=== PATIENT | female | born 1960 | race African-American/Black ===

== ENCOUNTER 2022-10-30 10:02 | Emergency (ER) | payer MEDICAID ==
[~2022-10-30] VITALS: Ht 182.9 cm; Wt 114.0 kg
[~2022-10-30 10:02] MED LIST: BUSP10TA4; D-ME118S13; LORA2TAB2
[2022-10-30] MEDS ORDERED: IPRATROPIUM BROMIDE (0.02%) 0.5MG/2.5ML NEB HHN STA (10:21)
[2022-10-30] MEDS ORDERED: METHYLPREDNISOLONE SOD SUCC 125 MG/2 ML VIAL IV STA (10:21)
[2022-10-30] MEDS ORDERED: ALBUTEROL (0.083%) 2.5MG/3ML NEB HHN SCH (10:30)
[2022-10-30 10:53] LABS: BASOPHILS % 1.3 % (0.0-2.0); EOSINOPHILS % 2.7 % (0.0-5.0); HEMATOCRIT. 39.6 % (36.0-48.0); LYMPHOCYTES % 30.9 % (20.0-50.0); MEAN CORPUSCULAR HEMOGLOBIN 30.4 pg (28.0-32.0); MEAN CORPUSCULAR VOLUME 92.6 fL (81.0-99.0); MEAN PLATELET VOLUME 8.6 fl (7.4-10.4); MONOCYTES % 7.8 % (2.0-8.0); NEUTROPHILS % 57.3 % (40.0-76.0); PLATELET 298 x1000/uL (130-400); RED BLOOD CELL COUNT 4.27 mill/uL (4.2-5.4); RED CELL DISTRIBUTION WIDTH 15.2 % (11.6-14.6)
[2022-10-30 11:05] VITALS: BP 155/101
[2022-10-30 11:22] LABS: CHLORIDE 106 mEq/L (98-107)
== END 2022-10-30 12:09 | disposition left against medical advice (07) ==
LOC: ER 10:02 → EDBEDREQTM 11:50 → EDBEDREQSVC 11:50 → EDBEDREQ 11:50 → ER 12:09 → CANBEDREQ 13:04
DX: J44.1 Chronic obstructive pulmonary disease with (acute) exacerbation (principal); Z20.822 Contact with and (suspected) exposure to COVID-19; Z53.21 Procedure and treatment not carried out due to patient leaving prior to being seen by health care provider
CPT/HCPCS: 36415; 71045; 80053; 83880; 84484; 85025; 87426; 93005; 96374; 99285; C9803; J2930; Z7610

== ENCOUNTER 2024-10-15 03:10 | Emergency (ER) | payer MEDICAID ==
[~2024-10-15] VITALS: Ht 177.8 cm; Wt 137.0 kg
[~2024-10-15 03:10] MED LIST changes: +ALBU18HF2 IH; -BUSP10TA4; +BUSP10TA4 PO; -D-ME118S13; -LORA2TAB2; +P20 MT
[2024-10-15 03:12] VITALS: BP 150/88; PULSE 110; RESP 18; TEMP 36.9; O2SAT 98
[2024-10-15] MEDS ORDERED: IBUP-2028 MT ×2 (08:17→19:02)
[2024-10-15] MEDS: LIDOCAINE 5% PATCH TOP SCH (10:28)
[2024-10-15] MEDS: ACETAMINOPHEN 500MG TABLET PO ONE (10:28)
[2024-10-16] MEDS ORDERED: METO-385 PO (07:48)
[2024-10-16] MEDS ORDERED: FURO40TA5 PO (07:48)
[2024-10-16] MEDS ORDERED: ATOR10TA69 PO (07:48)
[2024-10-16] MEDS ORDERED: CHOL500010 PO (07:48)
[2024-10-16] MEDS ORDERED: ASPI-986 PO (07:48)
== END 2024-10-15 10:32 | disposition home or self-care (01) ==
LOC: ER 03:10
DX: G89.29 Other chronic pain (principal); M25.561 Pain in right knee; M25.562 Pain in left knee; J44.89 Other specified chronic obstructive pulmonary disease; M17.12 Unilateral primary osteoarthritis, left knee; Z88.5 Allergy status to narcotic agent
CPT/HCPCS: 73560; 99283

== ENCOUNTER 2024-10-15 11:46 | Emergency (ER) | payer MEDICAID ==
[~2024-10-15] VITALS: Ht 162.6 cm; Wt 81.6 kg
[~2024-10-15 11:46] MED LIST changes: +IBUP-2028 MT
[2024-10-15 11:52] VITALS: O2SAT 99
[2024-10-15 12:12] VITALS: BP 138/72; PULSE 89; RESP 18; TEMP 37; O2SAT 99
[2024-10-15] MEDS ORDERED: IBUP-2028 MT (19:02)
[2024-10-15 22:00] LABS: BASOPHILS % 0.6 % (0.0-2.0); EOSINOPHILS % 4.5 % (0.0-5.0); HEMATOCRIT. 33.5 % (36.0-48.0); HEMOGLOBIN. 10.5 g/dL (12.0-16.0); LYMPHOCYTES % 17.7 % (20.0-50.0); MEAN CORPUSCULAR HEMOGLOBIN 28.7 pg (28.0-32.0); MEAN CORPUSCULAR HGB CONC 31.3 g/dL (31.0-37.0); MEAN CORPUSCULAR VOLUME 91.7 fL (81.0-99.0); MEAN PLATELET VOLUME 8.2 fl (7.4-10.4); MONOCYTES % 8.1 % (2.0-8.0); NEUTROPHILS % 69.1 % (40.0-76.0); PLATELET 314 x1000/uL (130-400); RED BLOOD CELL COUNT 3.65 mill/uL (4.2-5.4); RED CELL DISTRIBUTION WIDTH 17.8 % (11.6-14.6); WHITE BLOOD COUNT 7.7 x1000/uL (4.5-11.0)
[2024-10-15 22:10] LABS: CARBON DIOXIDE 37 mEq/L (21-32); CHLORIDE 104 mEq/L (98-107); POTASSIUM 3.7 mEq/L (3.5-5.1); SODIUM 144 mEq/L (136-145)
[2024-10-15 22:11] LABS: CALCIUM 9.8 mg/dL (8.7-10.4)
[2024-10-15 22:16] LABS: CREATININE 0.6 mg/dL (0.6-1.0); ETHANOL BLOOD < 10 mg/dL (<10); GLUCOSE 117 mg/dL (70-105); UREA NITROGEN BLOOD 13 mg/dL (9-23)
[2024-10-15 22:17] LABS: ALANINE AMINOTRANSFERASE 13 IU/L (10-49)
[2024-10-15 22:18] LABS: ACETAMINOPHEN < 2 ug/mL (10-30); ALBUMIN 3.9 g/dL (3.2-4.8); ASPARTATE AMINOTRANSFERASE 14 IU/L (<34); BILIRUBIN DIRECT 0.1 mg/dL (<=3.0); BILIRUBIN TOTAL 0.6 mg/dL (0.1-1.0); PROTEIN TOTAL 6.6 g/dL (6.0-8.3)
[2024-10-16] MEDS ORDERED: ASPI-986 PO (07:48)
[2024-10-16] MEDS ORDERED: CHOL500010 PO (07:48)
[2024-10-16] MEDS ORDERED: ATOR10TA69 PO (07:48)
[2024-10-16] MEDS ORDERED: METO-385 PO (07:48)
[2024-10-16] MEDS ORDERED: FURO40TA5 PO (07:48)
[2024-10-20] MEDS ORDERED: FLUT1DIS3 INH (14:24)
[2024-10-20] MEDS ORDERED: ALBU18HF2 IH (14:24)
[2024-10-20] MEDS ORDERED: P20 MT (14:24)
[2024-10-20] MEDS ORDERED: RISP1 PO (14:24)
[2024-10-20] MEDS ORDERED: FURO-151 MT (14:26)
== END 2024-10-15 19:52 | disposition home or self-care (01) ==
LOC: ER 11:46
DX: F41.9 Anxiety disorder, unspecified (principal); Z59.00 Homelessness unspecified; R32 Unspecified urinary incontinence; J44.89 Other specified chronic obstructive pulmonary disease; Z79.899 Other long term (current) drug therapy; Z88.5 Allergy status to narcotic agent
CPT/HCPCS: 36415; 80048; 80076; 80307; 80320; 80329; 85025; 99283; G0480

== ENCOUNTER 2024-11-14 23:44 | Inpatient (IN) | payer MEDICAID, OTHER ==
[~2024-11-14] VITALS: Ht 170.2 cm; Wt 111.6 kg
[~2024-11-14 23:44] MED LIST changes: +ASPI-986 PO; +ATOR10TA69 PO; +CHOL500010 PO; +FLUT1DIS3 INH; +FURO40TA5 PO; +METH4TAB95 MT; +METO-385 PO; -P20 MT; +RISP1 PO
[2024-11-15 00:37] LABS: CHLORIDE 102 mEq/L (98-107); POTASSIUM 3.8 mEq/L (3.5-5.1); SODIUM 145 mEq/L (136-145)
[2024-11-15 00:38] LABS: BASOPHILS % 0.7 % (0.0-2.0); CALCIUM 8.8 mg/dL (8.7-10.4); CARBON DIOXIDE 36 mEq/L (21-32); EOSINOPHILS % 2.5 % (0.0-5.0); HEMATOCRIT. 31.5 % (36.0-48.0); HEMOGLOBIN. 9.9 g/dL (12.0-16.0); LYMPHOCYTES % 14.8 % (20.0-50.0); MEAN CORPUSCULAR HEMOGLOBIN 28.1 pg (28.0-32.0); MEAN CORPUSCULAR HGB CONC 31.4 g/dL (31.0-37.0); MEAN CORPUSCULAR VOLUME 89.4 fL (81.0-99.0); MEAN PLATELET VOLUME 8.5 fl (7.4-10.4); MONOCYTES % 8.8 % (2.0-8.0); NEUTROPHILS % 73.2 % (40.0-76.0); PLATELET 263 x1000/uL (130-400); RED BLOOD CELL COUNT 3.53 mill/uL (4.2-5.4); RED CELL DISTRIBUTION WIDTH 19.4 % (11.6-14.6); WHITE BLOOD COUNT 10.1 x1000/uL (4.5-11.0)
[2024-11-15 00:43] LABS: CREATININE 0.7 mg/dL (0.6-1.0); GLUCOSE 143 mg/dL (70-105); TROPONIN I HIGH SENSITIVITY 6 ng/L (3.0-34); UREA NITROGEN BLOOD 14 mg/dL (9-23)
[2024-11-15] MEDS: IPRATROPIUM BROMIDE (0.02%) 0.5MG/2.5ML NEB HHN STA (01:51)
[2024-11-15] MEDS: ALBUTEROL (0.083%) 2.5MG/3ML NEB HHN STA (01:52)
[2024-11-15 02:05] VITALS: PULSE 96; RESP 20; O2SAT 98
[2024-11-15 02:49] LABS: TROPONIN I HIGH SENSITIVITY 5 ng/L (3.0-34)
[2024-11-15] MEDS: METHYLPREDNISOLONE SOD SUCC 125MG/2ML (ACT-O-VIAL) IV STA (03:32)
[2024-11-15] MEDS ORDERED: CLONIDINE 0.1MG TABLET PO PRN (05:30)
[2024-11-15] MEDS ORDERED: HYDROCODONE/ACETAMINOPHEN 5/325MG TABLET PO PRN (05:30)
[2024-11-15] MEDS ORDERED: BUDESONIDE 0.5MG/2ML NEB HHN SCH (05:30)
[2024-11-15 06:09] VITALS: BP 108/60; PULSE 100; RESP 20; TEMP 36.6
[2024-11-15] MEDS ORDERED: NALOXONE HCL 0.4MG/ML VIAL IV PRN (06:45)
[2024-11-15] MEDS ORDERED: IPRATROPIUM/ALBUTEROL 0.5-3(2.5)MG/3ML NEB HHN SCH (08:00)
[2024-11-15] MEDS: BUSPIRONE HCL 10MG TABLET PO SCH (08:13)
[2024-11-15] MEDS: LEVETIRACETAM 500MG TABLET PO SCH (08:13)
[2024-11-15] MEDS: ATORVASTATIN CALCIUM 10MG TABLET PO SCH (08:13)
[2024-11-15] MEDS: ASPIRIN 81MG TABLET PO SCH (08:13)
[2024-11-15] MEDS: ENOXAPARIN 40MG/0.4ML SYR SUBCUT SCH (08:14)
[2024-11-15] MEDS: AMLODIPINE 10MG TABLET PO SCH (08:21)
[2024-11-15] MEDS ORDERED: BUSPIRONE HCL 10MG TABLET PO SCH (09:00)
[2024-11-15] MEDS ORDERED: METHYLPREDNISOLONE SOD SUCC 500 MG in DEXT 5% WATER 100 ML IV SCH (09:00)
[2024-11-15] MEDS ORDERED: LIDOCAINE HCL 1% 10 MG/ML 10ML VIAL ONE (09:14)
[2024-11-15 11:19] LABS: CHLORIDE 101 mEq/L (98-107); SODIUM 144 mEq/L (136-145)
[2024-11-15 11:20] LABS: CARBON DIOXIDE 35 mEq/L (21-32)
[2024-11-15 11:25] LABS: CREATININE 0.6 mg/dL (0.6-1.0); GLUCOSE 194 mg/dL (70-105); TRIGLYCERIDE 105 mg/dL (0-150)
[2024-11-15 11:26] LABS: LDL CHOLESTEROL 110 mg/dL (5-100); UREA NITROGEN BLOOD 11 mg/dL (9-23)
[2024-11-15 11:27] LABS: CHOLESTEROL 177 mg/dL (<200); HDL CHOLESTEROL 45 mg/dL (>65)
[2024-11-15] MEDS: FUROSEMIDE 40MG/4ML VIAL IVP SCH (14:00)
[2024-11-15] MEDS: PREDNISONE 20MG TABLET PO SCH (15:43)
[2024-11-15] MEDS ORDERED: P20 MT (16:45)
[2024-11-15] MEDS ORDERED: ALBU18HF2 IH (16:45)
[2024-11-15] MEDS ORDERED: FURO40TA5 PO (16:45)
[2024-11-15] MEDS ORDERED: RISP1 MT (16:45)
[2024-11-15] MEDS ORDERED: KEPP500 MT (16:46)
[2024-11-15] MEDS ORDERED: AMLO10TA80 MT (16:46)
[2024-11-15] MEDS: FUROSEMIDE 40MG TABLET PO SCH (18:05)
[2024-11-15] MEDS: MONTELUKAST SODIUM 10MG TABLET PO SCH (18:05)
[2024-11-15 20:00] VITALS: BP 118/63; PULSE 83; RESP 18; TEMP 36.7; O2SAT 97
[2024-11-15] MEDS: RISPERIDONE 1MG TABLET PO SCH (20:50)
[2024-11-16] VITALS: BP 121/59; PULSE 72; RESP 18; TEMP 36.9; O2SAT 95
[2024-11-16 04:00] VITALS: BP 127/95; PULSE 86; RESP 18; TEMP 37; O2SAT 95
[2024-11-16 08:00] VITALS: BP 122/58; PULSE 96; RESP 18; TEMP 36.5; O2SAT 99
[2024-11-16 11:44] VITALS: BP 122/58; PULSE 96; TEMP 97.7; O2SAT 99
== END 2024-11-16 13:55 | disposition home or self-care (01) | DRG 194 ==
LOC: ER 23:44 → 8WST 11-15 01:18 → ENRESERV 11-15 03:37
PROVIDERS: ADMIT Internal Medicine; ATTEND Internal Medicine
DX: I11.0 Hypertensive heart disease with heart failure (principal); J96.00 Acute respiratory failure, unspecified whether with hypoxia or hypercapnia; I50.33 Acute on chronic diastolic (congestive) heart failure; E66.01 Morbid (severe) obesity due to excess calories; Z68.38 Body mass index [BMI] 38.0-38.9, adult; J44.1 Chronic obstructive pulmonary disease with (acute) exacerbation; F17.210 Nicotine dependence, cigarettes, uncomplicated; Z88.5 Allergy status to narcotic agent
CPT/HCPCS: 36415; 71045; 80048; 80061; 83036; 83880; 84484; 85025; 93005; 94070; 94640; 94664; 98960; 99291; A4606; J1650; J1940; J2003; J7512

== ENCOUNTER 2024-12-02 20:17 | Inpatient (IN) | payer OTHER ==
[~2024-12-02] VITALS: Ht 325.1 cm; Wt 127.9 kg
[~2024-12-02 20:17] MED LIST changes: +AMLO10TA80 MT; +KEPP500 MT; +P20 MT; +RISP1 MT
[2024-12-02 21:03] VITALS: PULSE 103; RESP 32; O2SAT 87
[2024-12-02] MEDS: ALBUTEROL (0.083%) 2.5MG/3ML NEB HHN STA (21:03)
[2024-12-02] MEDS: IPRATROPIUM BROMIDE (0.02%) 0.5MG/2.5ML NEB HHN STA (21:03)
[2024-12-02 21:11] LABS: HEMATOCRIT. 31.3 % (36.0-48.0); HEMOGLOBIN. 9.5 g/dL (12.0-16.0); MEAN CORPUSCULAR HEMOGLOBIN 26.3 pg (28.0-32.0); MEAN CORPUSCULAR HGB CONC 30.4 g/dL (31.0-37.0); MEAN CORPUSCULAR VOLUME 86.6 fL (81.0-99.0); MEAN PLATELET VOLUME 8.5 fl (7.4-10.4); PLATELET 389 x1000/uL (130-400); RED BLOOD CELL COUNT 3.61 mill/uL (4.2-5.4); RED CELL DISTRIBUTION WIDTH 19.8 % (11.6-14.6); WHITE BLOOD COUNT 12.4 x1000/uL (4.5-11.0)
[2024-12-02 21:17] LABS: DIFFERENTIAL COMMENT 1
[2024-12-02 21:20] LABS: CHLORIDE 105 mEq/L (98-107); POTASSIUM 3.9 mEq/L (3.5-5.1); SODIUM 144 mEq/L (136-145)
[2024-12-02 21:21] LABS: CARBON DIOXIDE 36 mEq/L (21-32); PROTHROMBIN TIME 10.9 sec (9.6-11.0)
[2024-12-02 21:26] LABS: CREATININE 0.9 mg/dL (0.6-1.0); GLUCOSE 140 mg/dL (70-105); UREA NITROGEN BLOOD 10 mg/dL (9-23)
[2024-12-02 21:27] LABS: TROPONIN I HIGH SENSITIVITY 8 ng/L (3.0-34)
[2024-12-02 21:37] LABS: ANISOCYTOSIS 1+; PLATELET ESTIMATE NORMAL
[2024-12-02] MEDS: FUROSEMIDE 40MG/4ML VIAL IV ONE (21:54)
[2024-12-02] MEDS: PREDNISONE 20MG TABLET PO STA (21:54)
[2024-12-02] MEDS: LEVOFLOXACIN 750MG PREMIX 150 ML IV SCH (23:10)
[2024-12-03 01:15] VITALS: O2SAT 97
[2024-12-03] MEDS ORDERED: IPRATROPIUM/ALBUTEROL 0.5-3(2.5)MG/3ML NEB NEB SCH (01:15)
[2024-12-03] MEDS ORDERED: ACETAMINOPHEN 325MG TABLET PO PRN (01:15)
[2024-12-03] MEDS ORDERED: CLONIDINE 0.1MG TABLET PO PRN (01:15)
[2024-12-03] MEDS ORDERED: MAGNESIUM/ALUMINUM HYDROXIDE/SIMETHICONE 30ML UDC PO PRN (01:15)
[2024-12-03] MEDS ORDERED: LEVOFLOXACIN 500MG PREMIX 100 ML IV SCH (01:15)
[2024-12-03] MEDS ORDERED: ONDANSETRON HCL 4MG/2ML INJ IV PRN (01:15)
[2024-12-03] MEDS ORDERED: HYDROCODONE/ACETAMINOPHEN 5/325MG TABLET PO PRN (01:15)
[2024-12-03] MEDS: LEVOFLOXACIN 750MG PREMIX 150 ML IV SCH (01:30)
[2024-12-03] MEDS ORDERED: NALOXONE HCL 0.4MG/ML VIAL IV PRN (01:45)
[2024-12-03 02:42] VITALS: BP 119/56; PULSE 88; RESP 20; TEMP 36.9
[2024-12-03] MEDS ORDERED: METHYLPREDNISOLONE SOD SUCC 40MG/ML (ACT-O-VIAL) IV SCH (06:00)
[2024-12-03] MEDS ORDERED: METOPROLOL SUCCINATE 50MG ER TABLET PO SCH (09:00)
[2024-12-03] MEDS ORDERED: ASPIRIN 325MG TABLET PO SCH (09:00)
[2024-12-03] MEDS ORDERED: RISPERIDONE 1MG TABLET PO SCH (09:00)
[2024-12-03] MEDS ORDERED: PANTOPRAZOLE SODIUM 40 MG/VIAL IV SCH (09:00)
[2024-12-03] MEDS ORDERED: LEVETIRACETAM 500MG TABLET PO SCH (09:00)
[2024-12-03] MEDS ORDERED: AMLODIPINE 10MG TABLET PO SCH (09:00)
[2024-12-03] MEDS ORDERED: ENOXAPARIN 40MG/0.4ML SYR SUBCUT SCH (09:00)
[2024-12-03] MEDS ORDERED: ATORVASTATIN CALCIUM 10MG TABLET PO SCH (21:00)
== END 2024-12-03 06:33 | disposition left against medical advice (07) | DRG 140 ==
LOC: ER 20:17 → 8WST 12-03 00:22 → EDBEDREQTM 12-03 00:41 → EDBEDREQ 12-03 00:41 → ENRESERV 12-03 00:55
PROVIDERS: ADMIT Internal Medicine; ATTEND Internal Medicine
DX: J44.1 Chronic obstructive pulmonary disease with (acute) exacerbation (principal); I11.0 Hypertensive heart disease with heart failure; I50.9 Heart failure, unspecified; E11.9 Type 2 diabetes mellitus without complications; Z53.29 Procedure and treatment not carried out because of patient's decision for other reasons; Z91.199 Patient's noncompliance with other medical treatment and regimen due to unspecified reason; Z88.5 Allergy status to narcotic agent
CPT/HCPCS: 36415; 71045; 80048; 83880; 84484; 85025; 93005; 94070; 94640; 94664; 94760; 99285; J1940; J1956; J7512

== ENCOUNTER 2024-12-08 07:19 | Emergency (ER) | payer OTHER ==
[~2024-12-08] VITALS: Ht 172.7 cm; Wt 100.0 kg
[2024-12-08 07:26] VITALS: O2SAT 100
[2024-12-08 08:32] LABS: BASOPHILS % 0.5 % (0.0-2.0); DIFFERENTIAL COMMENT 0; EOSINOPHILS % 0.3 % (0.0-5.0); HEMOGLOBIN. 9.6 g/dL (12.0-16.0); LYMPHOCYTES % 8.7 % (20.0-50.0); MEAN CORPUSCULAR HEMOGLOBIN 26.3 pg (28.0-32.0); MEAN CORPUSCULAR VOLUME 87.7 fL (81.0-99.0); MONOCYTES % 9.2 % (2.0-8.0); NEUTROPHILS % 81.3 % (40.0-76.0); PLATELET 273 x1000/uL (130-400); RED BLOOD CELL COUNT 3.65 mill/uL (4.2-5.4); RED CELL DISTRIBUTION WIDTH 19.7 % (11.6-14.6); WHITE BLOOD COUNT 12.5 x1000/uL (4.5-11.0)
[2024-12-08] MEDS: METHYLPREDNISOLONE SOD SUCC 125MG/2ML (ACT-O-VIAL) IV ONE (08:38)
[2024-12-08 08:46] LABS: CHLORIDE 99 mEq/L (98-107); SODIUM 138 mEq/L (136-145)
[2024-12-08 08:47] LABS: CALCIUM 8.8 mg/dL (8.7-10.4); CARBON DIOXIDE 38 mEq/L (21-32)
[2024-12-08 08:52] LABS: CREATININE 0.6 mg/dL (0.6-1.0); GLUCOSE 126 mg/dL (70-105); UREA NITROGEN BLOOD 12 mg/dL (9-23)
[2024-12-08 08:53] LABS: TROPONIN I HIGH SENSITIVITY 7 ng/L (3.0-34)
[2024-12-08 09:22] VITALS: PULSE 93; RESP 22
[2024-12-08] MEDS: IPRATROPIUM/ALBUTEROL 0.5-3(2.5)MG/3ML NEB HHN ONE (09:22)
[2024-12-08 11:08] LABS: TROPONIN I HIGH SENSITIVITY 7 ng/L (3.0-34)
[2024-12-08 14:39] VITALS: BP 119/81; PULSE 106; RESP 34; TEMP 36.8; O2SAT 100
== END 2024-12-08 14:55 | disposition short-term general hospital (02) ==
LOC: ER 07:19 → CANBEDREQ 11:56 → ER 14:55
DX: J44.1 Chronic obstructive pulmonary disease with (acute) exacerbation (principal); F17.200 Nicotine dependence, unspecified, uncomplicated; I51.9 Heart disease, unspecified; Z88.5 Allergy status to narcotic agent; Z79.899 Other long term (current) drug therapy; Z79.82 Long term (current) use of aspirin
CPT/HCPCS: 80048; 83880; 85025; 84484; 36415; 71045; 94640; 93005; 96374; 99285; J2919; Z7610 ×4; 94070; A4606